=== PATIENT | male | born 2000 | race Two or more races ===

== ENCOUNTER 2022-07-24 18:03 | Emergency (ER) | payer MEDICAID, OTHER ==
[~2022-07-24] VITALS: Ht 177.8 cm; Wt 139.1 kg
[2022-07-24 19:00] VITALS: BP 151/98
[2022-07-24] MEDS ORDERED: SULF400T11 PO (19:57)
== END 2022-07-24 20:14 | disposition home or self-care (01) ==
LOC: ER 18:03
DX: L05.01 Pilonidal cyst with abscess (principal)
CPT/HCPCS: 10080

== ENCOUNTER 2022-07-26 18:08 | Emergency (ER) | payer MEDICAID ==
[~2022-07-26] VITALS: Ht 177.8 cm; Wt 100.0 kg
[~2022-07-26 18:08] MED LIST: SULF400T11 PO
[2022-07-26 20:15] VITALS: BP 143/94
== END 2022-07-26 21:20 | disposition home or self-care (01) ==
LOC: ER 18:08
DX: T81.49XD Infection following a procedure, other surgical site, subsequent encounter (principal); B99.8 Other infectious disease; F17.210 Nicotine dependence, cigarettes, uncomplicated; F12.90 Cannabis use, unspecified, uncomplicated